=== PATIENT | female | born 1990 | race Caucasian/White ===

== ENCOUNTER 2016-05-12 08:10 | Emergency (ER) | payer OTHER ==
[2016-05-12 09:04] LABS: BASO % 0.2 % (0.1-1.2); EOS # 0.1 10_X3_uL (0.0-0.4); EOS % 0.5 % (0.7-5.8); GRAN # 11.3 10_X3_uL (1.6-6.1); GRAN % 90.6 % (34.0-71.1); HEMATOCRIT 47.3 % (34-45); HEMOGLOBIN 16.3 g/dL (11.2-15.7); LYMPH # 0.5 10_X3_uL (1.2-3.7); LYMPH % 3.7 % (19.3-51.7); MEAN CORPUSCULAR HEMOGLOBIN 32.2 pg (27.0-33.0); MEAN CORPUSCULAR HGB CONC 34.5 g/dL (32.0-36.0); MEAN CORPUSCULAR VOLUME 93.5 fL (79-95); MEAN PLATELET VOLUME 10.7 fl (7.5-11.5); MONO # 0.6 10_X3_uL (0.2-0.9); PLATELET COUNT 252 x10_3/uL (182-369); RED BLOOD COUNT 5.06 x10_6/uL (3.9-5.2); RED CELL DISTRIBUTION WIDTH 12.4 % (11.7-14.4); WHITE BLOOD COUNT 12.5 x10_3/uL (4.0-10.0)
[2016-05-12 09:15] LABS: AMYLASE 51 U/L (15.62-74.58); LIPASE 26 U/L (6.75-60.75)
[2016-05-12 09:45] LABS: URINE BILIRUBIN NEGATIVE (NEGATIVE); URINE BLOOD 3+ (NEGATIVE); URINE GLUCOSE (UA) NORMAL (NORMAL); URINE KETONE NEGATIVE (NEGATIVE); URINE LEUKOCYTE ESTERASE TRACE (NEGATIVE); URINE NITRATE NEGATIVE (NEGATIVE); URINE PROTEIN TRACE (NEGATIVE); UROBILINOGEN NORMAL mg/dL (<1.0)
[2016-05-12 09:59] LABS: URINE BACTERIA FEW (NONE SEEN); URINE SQUAMOUS EPITHELIAL CELL >20 /[HPF] (NONE SEEN); URINE WBC 0-5 /[HPF] (0-5)
== END 2016-05-12 12:03 | disposition home or self-care (01) ==
LOC: ER 08:10
PROVIDERS: General Practice
DX: K52.9 Noninfective gastroenteritis and colitis, unspecified (principal); E86.0 Dehydration; A18.01 Tuberculosis of spine; R19.7 Diarrhea, unspecified; Z79.899 Other long term (current) drug therapy
CPT/HCPCS: 36415; 81001; 82150; 83690; 84703; 85025; 96365; 99070; 99283-25